=== PATIENT | male | born 1965 | race Caucasian/White ===

== ENCOUNTER → 2020-01-08 09:44 | Outpatient (CLI) | payer MEDICARE, MEDICAID, SELFPAY ==
--- NOTE | ~2020-01-08 | MR_ITS ---
EXAMINATION: MR lumbar spine wo con DATE: 01/08/2020 11:00 INDICATION: Low back pain. TECHNIQUE: Magnetic resonance imaging (MRI) of the lumbar spine was performed without intravenous con trast. Sequences included sagittal T2-weighted FSE, sagittal STIR FSE, sagittal T1-weighted FSE, and axial T2-weighted FSE. COMPARISON: None FINDINGS: There is 7 degrees dextrocurvature of lumbar spine. There are Schmorl's nodes at L1-L2 and L2-L3. There is severely decreased disc height at L5-S1. The distal spinal cord signal intensity is n ormal. The conus medullaris is at L1-L2. There is a 1.8 cm cyst in right kidney. The following disc l evels are specifically discussed: L1-L2: The disc does not extend beyond the endplate margin. There is mild bilateral facet joint osteo arthritis. There is no neural foraminal stenosis. There is no central canal stenosis. L2-L3: The disc does not extend beyond the endplate margin. There is mild bilateral facet joint osteo arthritis. There is no neural foraminal stenosis. There is no central canal stenosis. L3-L4: The disc does not extend beyond the endplate margin. There is no facet joint osteoarthritis. T here is no neural foraminal stenosis. There is no central canal stenosis. L4-L5: The disc is bulging and has an annular fissure. There is mild right and moderate left facet pamela int osteoarthritis. There is mild right and moderate left neural foraminal stenosis. There is mild ce ntral canal stenosis. L5-S1: The disc is bulging and has an annular fissure. There is severe right and moderate left facet joint osteoarthritis. There is moderate right and mild left neural foraminal stenosis. There is mild central canal stenosis. IMPRESSION: 1. Severe lower lumbar spondylosis. Reviewed, dictated and finalized at location A.
--- NOTE | ~2020-01-08 | MR_ITS ---
EXAMINATION: MR thoracic spine wo con DATE: 01/08/2020 10:49 INDICATION: Thoracic back pain. TECHNIQUE: Magnetic resonance imaging (MRI) of the thoracic spine was performed without intravenous c ontrast. Sagittal localizer T1-weighted FSE of the cervical spine was obtained. Thoracic spine sequen mel[place] included sagittal T2-weighted FSE, sagittal T1-weighted FSE, sagittal T2-weighted FS FSE, and axi al T2-weighted FSE. COMPARISON: None FINDINGS: There is 6 degrees levocurvature of thoracic spine. Vertebral body heights are normal. Ther e are hemangiomas in multiple vertebral bodies with the largest in T8. There is mildly decreased disc height from T5-T6 through T9-T10. At T3-T4, there is a left central protrusion with mild central can al stenosis. At T4-T5, there is a right central extrusion with mild central canal stenosis and ventra l indentation of the spinal cord. At T5-T6, there is a left central extrusion with mild central canal stenosis and ventral indentation of the spinal cord. At T7-T8, there is a central extrusion with mil d central canal stenosis and ventral indentation of the spinal cord. At T8-T9, there is a right centr al extrusion with mild central canal stenosis. At T9-T10, there is a left subarticular zone extrusion with mild central canal stenosis. There is mild facet joint osteoarthritis at a few levels. At T9-T1 0, there is mild left neural foraminal stenosis. The spinal cord signal intensity is normal. IMPRESSION: 1. Mild thoracic spondylosis. Reviewed, dictated and finalized at location A.
== END ==
PROVIDERS: Visit Provider Nurse Practitioner Family
DX: M47.894 Other spondylosis, thoracic region (principal); M47.896 Other spondylosis, lumbar region
CPT/HCPCS: 72146; 72148